=== PATIENT | male | born 1950 | race Caucasian/White ===

== ENCOUNTER 2022-10-21 20:06 | Emergency (ER) | payer OTHER, MEDICARE, MEDICAID, SELFPAY ==
--- NOTE | ~2022-10-21 | CT_ITS ---
EXAMINATION: CT brain wo con DATE: 10/21/2022 21:25 INDICATION: fall . TECHNIQUE: Computed tomography (CT) of the head was performed without intravenous contrast. The mA wa s adjusted according to patient size. Iterative reconstruction technique was employed. The dose-lengt h product was 681.00 mGy-cm. COMPARISON: None. FINDINGS: No acute intracranial hemorrhage or extra-axial fluid collection. No hydrocephalus, mass, or herniation. No acute ischemic infarct. Unremarkable dural venous sinus attenuation. No acute osseous abnormality. Retention cysts or polyps in the left sphenoid and right inferior maxillary sinuses. Mild ethmoid muc osal thickening. Poorly pneumatized right mastoid air cells, with trace fluid. The remaining aerated spaces are clear. Moderate atrophy and chronic white matter change. Cavum septum pellucidum. IMPRESSION: No acute intracranial process. Reviewed, dictated and finalized at location K.
--- NOTE | ~2022-10-21 | CT_ITS ---
EXAMINATION: CT cervical spine wo con DATE: 10/21/2022 21:29 INDICATION: fall TECHNIQUE: Computed tomography (CT) of the cervical spine was performed without intravenous contrast. Automated exposure control and iterative reconstruction technique were employed. The dose-length pro duct was 496.03 mGy-cm. COMPARISON: None. FINDINGS: Vertebral Body Alignment: Intact. Reversed lordosis centered at C5. Craniocervical and atlantoaxial alignment: Moderate degenerative change. Alignment intact. Osseous structures/fracture: No evidence of a lytic or blastic process in the visualized spine. No e vidence of acute fracture. . Cervical soft tissues: The paraspinal soft tissues planes are maintained. 2.2 cm right thyroid nodule . Degenerative changes: Degenerative changes, without severe neural foraminal or central canal narrowin g. IMPRESSION: No acute fracture or traumatic malalignment in the cervical spine. 2.2 cm right thyroid nodule, recom mend outpatient thyroid ultrasound for further characterization. Reviewed, dictated and finalized at location K. IMPRESSION: No acute fracture or traumatic malalignment in the cervical spine. 2.2 cm right thyroid nodule, recommend outpatient thyroid ultrasound for further characteri zation.
--- NOTE | ~2022-10-21 | XR_ITS ---
EXAMINATION: XR chest 1V portable Exam Date/Time: 10/21/2022 22:47 CDT HISTORY: Fall. Comparison: None. RESULT: Lines, tubes, and devices: An electronic device projects over the central chest. Left chest pacer/AI CD with intact leads. Cholecystectomy clips. Lungs and pleura: Senescent changes. No focal consolidation. No pneumothorax. Left lateral costophre sravan angle blunting. Cardiomediastinal silhouette: Stable. Other: No acute upper abdominal finding. Multiple displaced left posterior rib fractures involving r ibs 4 through 8. Multiple displaced left lateral rib fractures involving ribs 4 through 7. IMPRESSION: Small right pleural effusion, may represent hemothorax in the setting of trauma. No definite pneumoth orax. Multiple contiguous segmental left rib fractures (flail chest). Consider CT of the chest with c ontrast for further evaluation. Reviewed, dictated and finalized at [facility]. IMPRESSION: Small right pleural effusion, may represent hemothorax in the setting of trauma . No definite pneumothorax. Multiple contiguous segmental left rib fractures (f ryan chest). Consider CT of the chest with contrast for further evaluation.
[2022-10-21 20:12] VITALS: BP 152/73; PULSE 71; RESP 18; TEMP 36.6; O2SAT 95
--- NOTE | 2022-10-21 21:00 | PC.NURSE ---
I was called in to this pt room by an RN assisting in this pt care because the pt had been found on the floor. Pt had no complaints of pain. Dr. Resendiz informed of pt fall and ct scans ordered.
--- NOTE | 2022-10-21 22:08 | ED.GENADULT ---
HPI - General Adult General Chief complaint: Recheck/Abnormal Lab/Rx <Pancho Montanez MD - Last Filed: 10/22/22 06:56> Stated complaint: abnormal labs <Pancho Montanez MD - Last Filed: 10/22/22 06:56> Time Seen by Provider: 10/21/22 21:48 <Pancho Montanez MD - Last Filed: 10/22/22 06:56> History of Present Illness HPI narrative: this is a 72-year-old male sent from the care home for abnormal labs. On exam the patient is laying in bed, he is responsive to pain. He is nonverbal. He provide no useful information. I did speak with his Shannon the who is his [id number]. She says that he has had a significant decline in function is no longer to eat or drink on her own. After a goals of care discussion we agree that he is at the point where he should be considered for hospice. <Pancho Montanez MD - Last Filed: 10/22/22 06:56> Related Data Allergies/adverse reactions: Allergies Allergy/AdvReac Type Severity Reaction Status Date / Time levofloxacin Allergy Unknown Verified 10/22/22 07:31 <Pancho Montanez MD - Last Filed: 10/22/22 06:56> [facility] Past Medical History Medical History: Medical History Dementia <Pancho Montanez MD - Last Filed: 10/22/22 06:56> Exam Narrative: APPEARANCE: Patient is lying supine in bed with his eyes closed, he is responsive to pain, Head: atraumatic. EYES: eyes closed pupils 2 mm NOSE: Atraumatic NECK: Trachea midline RESPIRATORY: No increased rate of breathing, CTAB CARDIOVASCULAR: RRR, ABDOMINAL: Non-distended soft no guarding or rebound MUSCULOSKELETAl: No obvious deformities NEURO: [id number] SKIN:: Warm, dry. Normal color PSYCHIATRIC: nonverbal <Pancho Montanez MD - Last Filed: 10/22/22 06:56> Course Course Emergency Course: Lisseth 0700: Signed out to the oncoming physician pending coordination of Care consult. <Pancho Montanez MD - Last Filed: 10/22/22 06:56> Lisseth 0700: Signed out to the oncoming physician pending coordination of Care consult. 1026: Care coordination has been interacting with the patient's family. They have decided to align care with hospice of [facility]. Patient will return to [place] where hospice will be able to initiate therapy right away. Ambulance has been scheduled to take the patient back to the facility. <Javier Pulliam MD - Last Filed: 10/22/22 10:34> Vital Signs Vital signs: Vital Signs Temperature 97.8 F 10/21/22 20:12 Pulse Rate 71 10/21/22 20:12 Respiratory Rate 18 10/21/22 20:12 Blood Pressure 152/73 H 10/21/22 20:12 Pulse Oximetry 95 10/21/22 20:12 Oxygen Delivery Room Air 10/21/22 20:12 Temperature 97.8 F 10/21/22 20:12 Pulse Rate 70 10/22/22 10:21 Respiratory Rate 11 L 10/22/22 10:21 Blood Pressure 114/62 10/22/22 10:21 Pulse Oximetry 96 10/22/22 10:21 Oxygen Delivery Room Air 10/21/22 20:12 <Pancho Montanez MD - Last Filed: 10/22/22 06:56> Vital Signs Temperature 97.8 F 10/21/22 20:12 Pulse Rate 71 10/21/22 20:12 Respiratory Rate 18 10/21/22 20:12 Blood Pressure 152/73 H 10/21/22 20:12 Pulse Oximetry 95 10/21/22 20:12 Oxygen Delivery Room Air 10/21/22 20:12 Temperature 97.8 F 10/21/22 20:12 Pulse Rate 70 10/22/22 10:21 Respiratory Rate 11 L 10/22/22 10:21 Blood Pressure 114/62 10/22/22 10:21 Pulse Oximetry 96 10/22/22 10:21 Oxygen Delivery Room Air 10/21/22 20:12 <Javier Pulliam MD - Last Filed: 10/22/22 10:34> Medical Decision Making MDM Narrative Medical decision making narrative: -Presentation: 72-year-old with severe dementia presenting with progressively worsening condition. On my exam he is GCS of 4. I had goals of care as discussion with his Essence and we will have him evaluated for hospice. We will get basic lab work but will not be pursuing any heroic measures. Comfort ca
--- NOTE | 2022-10-21 22:30 | PC.NURSE ---
multiple attempts at IV and blood work without success. Another RN attempting.
[2022-10-21 22:56] LABS: Influenza A QL RT-PCR Negative (Negative); Influenza B QL RT-PCR Negative (Negative); RSV RNA, RT-PCR Negative (Negative); SARS-CoV-2 RNA PCR Negative (Negative)
[2022-10-21 22:58] LABS: Basophils Absolute Auto 0.1 K/mm3 (0.0-0.1); Basophils Percent Auto 0.3 % (0.2-1.2); Eosinophils Absolute Auto 0.1 K/mm3 (0-0.3); Eosinophils Percent Auto 0.3 % (0-4.4); Hematocrit 47.1 % (42.0-52.0); Hemoglobin 15.5 g/dL (14.0-18.0); Immature Granulocyte Absolute 0.09 K/mm3 (0.00-0.031); Immature Granulocyte Percent A 0.5 % (0-0.5); Lymphocytes Absolute Auto 2.49 K/mm3 (0.9-3.2); Mean Corpuscular HGB Conc 32.9 g/dl (32-36); Mean Corpuscular Volume 100.4 fl (80-100); Monocytes Absolute Auto 1.8 K/mm3 (0.1-0.6); Monocytes Percent Auto 10.1 % (2.6-8.5); Neutrophils Absolute Auto 13.3 K/mm3 (1.3-6.7); Neutrophils Percent Auto 74.8 % (45.5-73.1); Nucleated Red Blood Cells Absolute Auto 0.1 K/mm3 (0.0-0.012); Nucleated Red Blood Cells Perc 0.7 % (0.0-0.2); Platelet Count Result 238 k/mm3 (150-375); Red Blood Count 4.69 M/mm3 (4.6-6.20); Red Cell Distribution Width 14.7 % (11.5-14.5); White Blood Count 17.8 K/mm3 (4.5-10.0)
[2022-10-21] MEDS: SODIUM CHLORIDE 0.9% IV 1,000 ML 999 ML IV CONT (23:00)
[2022-10-21 23:01] LABS: Appearance Urine Clear (Clear); Bacteria Urine None Seen /hpf; Bilirubin Urine Negative (Negative); Blood Urine 2+ (Negative); Color Urine Yellow (Yellow); Glucose Urine UA Negative (Negative); Ketones Urine Trace mg/dL (Negative); Leukocyte Esterase Ur Negative LEU/UL (Negative); Need Manual Microscopic Reviewed; Nitrate Urine Negative (Negative); Protein Urine Trace mg/dL (Negative); RBC Urine 51-100 /hpf (0-2); Specific Grav Ur 1.016 (1.001-1.035); Squamous Epithelial Cell Urine None seen /hpf (Few); WBC Urine 0-5 /hpf; pH Urine 5.5 (5.0-9.0)
[2022-10-21 23:02] VITALS: BP 144/78; PULSE 72; RESP 15; O2SAT 98
[2022-10-21 23:04] LABS: Add Urine Microscopic? YES
[2022-10-21] MEDS: HALOPERIDOL LACTATE 5 MG/ML VIAL IV PUSH (23:04)
[2022-10-21 23:09] LABS: Partial Thromboplastin Time 45.7 SECONDS (22.3-36.8); Prothrombin Time 87.9 Seconds (11.1-14.7)
[2022-10-21 23:11] LABS: Lactic Acid Reflex 2.2 mmol/L (0.7-2.0)
[2022-10-21 23:13] LABS: Alanine Aminotransferase 41 U/L (6-50); Alkaline Phosphatase 87 U/L (38-126); Anion Gap 9 mmol/L (8-16); Aspartate Amino Transferase 71 U/L (17-59); Bilirubin,Total 6.1 mg/dL (0.2-1.3); Blood Urea Nitrogen 69 mg/dL (9-20); Calcium 10.4 mg/dL (8.4-10.2); Carbon Dioxide 34 mmol/L (22-30); Chloride 107 mmol/L (98-107); Estimated CRCL calculation 16 ml/min; Estimated Glomerular Filt Rate 16; Glucose 111 mg/dL (65-110); Lipase 267 U/L (23-300); Magnesium 2.5 mg/dL (1.6-2.3); Potassium 3.3 mmol/L (3.4-5.0); Sodium 150 mmol/L (137-145)
[2022-10-21 23:18] LABS: INR 9.7
[2022-10-22] VITALS (9 sets, daily range): BP systolic 92–119; BP diastolic 50–80; PULSE 70–106; RESP 11–24; O2SAT 95–98
[2022-10-22] MEDS: LORazepam INJ (*CRX) 2 MG/ML VIAL 1 MG IV PUSH (00:35)
[2022-10-22] MEDS: HYDROmorphone HCL INJ (*CRX) 1 MG/ML SYR 0.5 MG IV PUSH (01:23)
[2022-10-22 01:56] LABS: Reflex Lactic Acid Yes or No Add Lactic
[2022-10-22] MEDS: LORazepam INJ (*CRX) 2 MG/ML VIAL IV PUSH (07:35)
[2022-10-22] MEDS: MORPHINE SULFATE (*CRX) 4 MG/ML INJ IV PUSH (10:02)
--- NOTE | 2022-10-22 10:32 | PC.NURSE ---
Gave report to JAZMYN Betancourt from [place].
== END 2022-10-22 10:55 | disposition hospice, home (50) ==
PROVIDERS: Emergency Provider Emergency Medicine; PCP Hospitalist
DX: F03.C0 Unspecified dementia, severe, without behavioral disturbance, psychotic disturbance, mood disturbance, and anxiety (principal); R41.82 Altered mental status, unspecified; D72.829 Elevated white blood cell count, unspecified; S22.5XXA Flail chest, initial encounter for closed fracture; N17.9 Acute kidney failure, unspecified; Z51.5 Encounter for palliative care; Z20.822 Contact with and (suspected) exposure to COVID-19; X58.XXXA Exposure to other specified factors, initial encounter
CPT/HCPCS: 36415; 70450; 71045; 72125; 80053; 81001; 83605; 83690; 83735; 85025; 85610; 85730; 87040; 87637; 96361; 96374; 96375; 99284; J1170; J1630; J2060; J2270; J7030